=== PATIENT | female | born 2005 | race Caucasian/White ===

== ENCOUNTER 2023-08-17 21:37 | Emergency (ER) | payer BC, SELFPAY ==
[2023-08-17 22:00] VITALS: BP 121/68; PULSE 77; RESP 16; TEMP 36.6; O2SAT 98; BMI 23.0
--- NOTE | 2023-08-17 22:02 | XR_ITS ---
Patient: PATTIE MEDELLIN Facility:?[facility] Patient ID:?[id number] Site Patient ID:?[id number]. Site :?[id number] Study:?XRay-Facial NASAL 3 VIEWS-08/17/2023 10:52:35 PM Ordering Physician:GUY Final Report: Indication: Hit in nose with baseball Technique: Three views of the nasal bones Comparison: None Findings/Impression: No acute radiographic abnormality appreciated. Dictated by Tee Alcaraz MD @ 08/17/2023 11:50:31 PM Signed by:?Tee Alcaraz MD @08/17/2023 11:50:31 PM (Electronic Signature)
--- NOTE | 2023-08-17 22:07 | ED.GENADULT ---
HPI - General Adult General Chief complaint: Nose Injury/Pain Stated complaint: Baseball hit to nose Time Seen by Provider: 08/17/23 22:04 History of Present Illness HPI narrative: 2032 hit in nose by baseball off of a bat. no LOC, no blood thinners. denies hx of trauma to face. bleeding is stopped. no vision problems , states pain is only 3/10. 17-year-old young woman presenting to the emergency department after taking a baseball to the nose. Concern appears to be for potential fracture or any intervention needed otherwise and/or concussion. There was no loss of consciousness. Initially distracted/out of it in pain as described. Hurt quite a bit. No neck or back pain. No discoordination. Able to see all right. No vomiting/nausea. Dentition feels normal. Related Data Home Medications ?Medication ?Instructions ?Recorded ?Confirmed No Known Home Medications 08/17/23 08/17/23 Allergies Allergy/AdvReac Type Severity Reaction Status Date / Time Sulfa (Sulfonamide AdvReac Verified 08/17/23 22:02 Antibiotics) Review of Systems Status of ROS: Reports: 6 or more systems reviewed and unremarkable except as noted in History and below [facility] Social History Non-prescribed substance use: denies use Exam Narrative: Exam Narrative: Pleasant. Eyes are injected has been crying. Cranial nerves 2-12 intact. Pupils are brisk and equal. Dried blood on her face/nose. Mild swelling and subtle bruising about the nasal bridge without depression. There is some edema in the left nares. Neither with septal hematoma. Nasal bridge appears to fairly midline. I think the swelling is contributing to appearance of slight asymmetry. Congested in the nasopharynx. Oropharynx is WNL. Dentition intact. Without TMJ pain. No neck pain. Breathing easily. Const: Vital Signs, click to edit/add: Vital Signs - 24 hr 08/17/23 22:00 Temperature 97.9 F Pulse Rate [Pulse Oximeter] 77 Respiratory Rate 16 Blood Pressure [Ri ght Upper Arm] 121/68 Pulse Oximetry 98 Oxygen Delivery Me thod Room Air Documenting provider has reviewed patient's vital signs: yes Course Vital Signs Vital signs: Initial Vital Signs Temperature 97.9 F 08/17/23 22:00 Temperature Source Temporal Artery Scan 08/17/23 22:00 Pulse Rate 77 08/17/23 22:00 Respiratory Rate 16 08/17/23 22:00 Blood Pressure 121/68 08/17/23 22:00 Blood Pressure Mean 85 08/17/23 22:00 Blood Pressure Position Sitting 08/17/23 22:00 Pulse Oximetry 98 08/17/23 22:00 Oxygen Delivery Method Room Air 08/17/23 22:00 Vital Signs Temperature 97.9 F 08/17/23 22:00 Pulse Rate 77 08/17/23 22:00 Respiratory Rate 16 08/17/23 22:00 Blood Pressure 121/68 08/17/23 22:00 Pulse Oximetry 98 08/17/23 22:00 Oxygen Delivery Method Room Air 08/17/23 22:00 Temperature 97.9 F 08/17/23 22:00 Pulse Rate 77 08/17/23 22:00 Respiratory Rate 16 08/17/23 22:00 Blood Pressure 121/68 08/17/23 22:00 Pulse Oximetry 98 08/17/23 22:00 Oxygen Delivery Method Room Air 08/17/23 22:00 Medications Administered Medications: Discontinued Medications Generic Name Dose Route Start Last Admin Trade Name Freq PRN Reason Stop Dose Admin Ibuprofen 600 mg 08/17/23 22:59 08/17/23 22:38 Ibuprofen 200 Mg Tablet PO 08/17/23 23:00 600 mg ONCE ONE Administration Medical Decision Making MDM Narrative Medical decision making narrative: Possible fracture here. No major deformity appreciated. No facial deformity other than her nose. Dentition intact. Does not appear to be concussed otherwise. Offered ibuprofen. Imaged nasal bones with x-rays. Reviewed by me appreciate the vascular channels in the nasal septum but I and not convinced of fracture. Radiology over-read concurs. See patient discharge plan for further plan/discussion Discharge Plan Discharge Clinical Impression: Closed head injury, Contusion of nose Patient Disposition: Home w/ Parent or Adult Condition: Improved Additional Instructions: I would continue to ice 2 - 3 times daily over the next few days as discussed. Can take up to 100 mg of ibuprofen or up to 1000 mg of acetaminophen per dose. These can be combined. Alternative to the ibuprofen might be up to 5 mg naproxen 2 times daily. Follow-up in a week or once swelling goes down for re-evaluation, if you are unsatisfied with what it looks like at that time. Probably ENT would want to be involved then. Signs or symptoms of a concussion might be nausea or headache upon exertion which can also be an indication to back off that level of activity and reassess in a week.? Concussion can also be represented by smoldering nausea or smoldering headache, difficulty with concentration, mood lability, general somnolence, sense of persistent fog or dizziness/lightheadedness.? If these symptoms are becoming apparent and continuing beyond 7-10 days, be re-evaluated for further recommendations. Prescriptions: No Action No Known Home Medications Follow Up/Referrals: Provider,Not a Local [Primary Care Provider] - Stand Alone Forms: [employer] Info Instructions
[2023-08-17] MEDS: IBUPROFEN 200 MG TABLET 600 MG PO (22:38)
== END 2023-08-18 00:08 | disposition home or self-care (01) ==
PROVIDERS: Emergency Provider Family Medicine
DX: S00.33XA Contusion of nose, initial encounter (principal); W21.03XA Struck by baseball, initial encounter
CPT/HCPCS: 70160; 99283; 99284; A9270

== ENCOUNTER 2024-12-20 09:25 | Outpatient (CLI) | payer BC, SELFPAY ==
[2024-12-20 13:05] LABS: Chlamydia DNA Amplified* NOT DETECTED (No Detected); GC DNA Amplified* NOT DETECTED (No Detected)
[2024-12-24 12:40] LABS: Pap Test Digital Imaging Done
== END 2024-12-20 09:26 | disposition home or self-care (01) ==
PROVIDERS: Visit Provider Physician Assistant
DX: Z12.4 Encounter for screening for malignant neoplasm of cervix (principal); Z13.9 Encounter for screening, unspecified
CPT/HCPCS: 87491; 87591; 87624; 87625; 88141; 88142; 88175